=== PATIENT | female | born 1930 | race Caucasian/White ===

== ENCOUNTER 2017-03-25 18:19 | Emergency (ER) | payer MEDICARE, OTHER ==
[2017-03-25] MEDS ORDERED: IRON PO (19:53)
[2017-03-25] MEDS ORDERED: LOSARTAN POTASS25 MG PO (19:53)
[2017-03-25] MEDS ORDERED: METOPROLOL SUCC50 MG PO (19:54)
[2017-03-25] MEDS ORDERED: ASPIRIN81 MG PO (19:54)
[2017-03-25] MEDS ORDERED: DESYREL50 MG DOB (19:55)
[2017-03-25] MEDS ORDERED: MULTI VITAMIN1 EACH PO (19:55)
[2017-03-25] MEDS ORDERED: LASIX20 MG PO (19:56)
[2017-03-25] MEDS ORDERED: PANTOPRAZOLE SO40 MG PO (19:56)
[2017-03-25] MEDS ORDERED: HYDROCODON-ACE1 EAC5 PO (19:56)
[2017-03-25] MEDS ORDERED: POTASSIUM CHLO20 ME2 PO (19:57)
[2017-03-25] MEDS ORDERED: ATORVASTATIN CA20 MG PO (19:57)
[2017-03-25] MEDS ORDERED: PROZAC40 MG DOB (19:58)
== END 2017-03-25 22:19 | disposition left against medical advice (07) ==
LOC: CED 18:19
DX: Z53.21 Procedure and treatment not carried out due to patient leaving prior to being seen by health care provider (principal)

== ENCOUNTER 2017-03-25 19:42 | Emergency (ER) | payer MEDICARE, OTHER ==
--- NOTE | ~2017-03-25 | CR72 ---
[facility] A Service of [facility] & [facility] RADIOLOGY TEXT RESULTS PATIENT: KARMA EMERY LOCATION: SED : 34 UNIT #: [id number] AGE: [address]: Wade Ward MD SEX: F ORDER DR: [id number] [address] [address] [id number] MR#: [id number] Acc #: [id number] NAME: KARMA EMERY : 1930 SEX: F STUDY DATE/TIME: 03/25/2017 20:29 UNIT: SED ROOM: STUDY DESCRIPTION: CR Chest Single View Portable Attending Physician: Wade Ward M.D. Ordering Physician: Wade Ward M.D. Primary Care Physician: No Primary Care Physician MEDICAL IMAGING REPORT This report is preliminary unless electronic signature is present. EXAM Portable chest. HISTORY Chest pain, shortness of air x2 days FINDINGS Portable view of the chest demonstrates cardiomegaly. Mild prominence of the pulmonary vascularity and interstitium may reflect early CHF. Small amount of lingular atelectasis. No effusions. Patient is post median sternotomy. Diffuse aortic atherosclerotic changes. No pneumothorax. Dictated by... South Marsh M.D. THIS IS AN ELECTRONICALLY VERIFIED REPORT South Marsh M.D. at 03/26/2017 3:10 PM MOY/kristian TD: 03/26/2017 10:36 JOB #: [id number] MEDICAL IMAGING REPORT Page 1 of 1
--- NOTE | ~2017-03-25 | EKG ---
PATIENT: KARMA EMERY UNIT #: [id number] Ventricular Rate: 83 BPM Atrial Rate: 94 BPM QRS Duration: 94 ms Q-T Interval: 414 ms QTC Calculation(Bezet): 486 ms Calculated R [place]: 7 degrees Calculated T [place]: 112 degrees Diagnosis Line: Atrial fibrillation Diagnosis Line: T wave abnormality, consider lateral ischemia or Diagnosis Line: digitalis effect Diagnosis Line: Prolonged QT Diagnosis Line: Abnormal ECG Diagnosis Line: No previous ECGs available Diagnosis Line: Confirmed by DORIS BOSTON MD ([id number]) on Diagnosis Line: 03/27/2017 8:31:58 AM INTERPRETING MD: LUDY BAKER
[2017-03-25] MEDS ORDERED: IRON PO (19:53)
[2017-03-25] MEDS ORDERED: LOSARTAN POTASS25 MG PO (19:53)
[2017-03-25] MEDS ORDERED: ASPIRIN81 MG PO (19:54)
[2017-03-25] MEDS ORDERED: METOPROLOL SUCC50 MG PO (19:54)
[2017-03-25] MEDS ORDERED: DESYREL50 MG DOB (19:55)
[2017-03-25] MEDS ORDERED: MULTI VITAMIN1 EACH PO (19:55)
[2017-03-25] MEDS ORDERED: HYDROCODON-ACE1 EAC5 PO (19:56)
[2017-03-25] MEDS ORDERED: PANTOPRAZOLE SO40 MG PO (19:56)
[2017-03-25] MEDS ORDERED: LASIX20 MG PO (19:56)
[2017-03-25] MEDS ORDERED: POTASSIUM CHLO20 ME2 PO (19:57)
[2017-03-25] MEDS ORDERED: ATORVASTATIN CA20 MG PO (19:57)
[2017-03-25] MEDS ORDERED: PROZAC40 MG DOB (19:58)
[2017-03-25 20:21] LABS: BASOPHIL# 0.1 X10e3 (0-0.3); BASOPHIL% 0.7 % (0-2.5); EOSINOPHIL# 0.2 X10e3 (0-0.7); EOSINOPHIL% 1.9 % (0.0-7.0); HEMATOCRIT 37.3 % (35.0-45.0); HEMOGLOBIN 12.6 gm/dL (12.0-16.0); LYMPHOCYTE# 3.1 X10e3 (1.0-3.5); MEAN CELL VOLUME 95.8 FL (83-96); MEAN CORPUSCULAR HEMOGLOBIN 32.4 PG (28-34); MEAN CORPUSCULAR HGB CONC 33.8 g/dL (30-36); MEAN PLATELET VOLUME 8.2 FL (6.5-11.5); MONOCYTE# 0.8 X10e3 (0-1.0); MONOCYTE% 6.8 % (3.0-12.0); NEUTROPHIL# 7.4 X10e3 (1.5-7.1); NEUTROPHIL% 63.6 % (40-75); PLATELET COUNT 226 X10e3 (140-420); RED BLOOD COUNT 3.89 X10e (3.90-5.30); RED CELL DISTRIBUTION WIDTH 13.8 % (11.0-15.5); WHITE BLOOD COUNT 11.6 X10e3 (4.0-10.5)
[2017-03-25 20:24] LABS: DIFF IND NO
[2017-03-25 20:26] LABS: INR 1.2; PROTHROMBIN TIME (PATIENT) 13.2 SECONDS (9.5-12.4)
[2017-03-25 20:33] LABS: PARTIAL THROMBOPLASTIN TIME 28.8 SECONDS (25.6-38.1)
[2017-03-25 20:34] LABS: ALBUMIN SERUM 4.1 g/dL (3.5-5.0); BILIRUBIN, DIRECT 0.1 mg/dL (0.0-0.2); BILIRUBIN,INDIRECT 0.6 mg/dL (0.0-0.9); BILIRUBIN,TOTAL 0.7 mg/dL (0.2-2.0); BUN/CREATININE RATIO 21.11; CALCIUM SERUM 8.7 mg/dL (8.4-10.2); CREATININE SERUM 0.9 mg/dL (0.6-1.4); GLOM FILT RATE Estimated 58.8 mL/min (>60); POTASSIUM 4.3 mmol/L (3.5-5.1); PROTEIN TOTAL SERUM 7.7 g/dL (6.0-8.3)
[2017-03-25 20:58] LABS: POC - CKMB <1.0 ng/mL (0.0-7.9); POC - TROPONIN <0.05 ng/mL (<=0.05)
== END 2017-03-26 01:02 ==
LOC: SED 19:42
PROVIDERS: Emergency Medicine
DX: I11.0 Hypertensive heart disease with heart failure (principal); I50.9 Heart failure, unspecified; E78.5 Hyperlipidemia, unspecified; Z79.899 Other long term (current) drug therapy; Z79.82 Long term (current) use of aspirin
CPT/HCPCS: 36415; 71010; 80048; 80076; 82553; 83690; 83880; 84484; 85025; 85610; 85730; 90715; 93005; 96374; 99285; J1940